=== PATIENT | male | born 1985 | race Caucasian/White ===

== ENCOUNTER 2024-01-09 18:15 | Emergency (ER) | payer OTHER ==
[~2024-01-09] VITALS: Ht 182.9 cm; Wt 122.5 kg
[2024-01-09] MEDS: SODIUM CHLORIDE 0.9% 1000ML 1,000 ML IV STA (20:02)
[2024-01-09] MEDS: FAMOTIDINE 20 MG/2 ML VIAL IV STA (20:02)
[2024-01-09] MEDS ORDERED: PANTOPRAZOLE SO40 MG PO (21:08)
[2024-01-09 21:33] VITALS: PULSE 72; RESP 17; TEMP 98.6; O2SAT 98
== END 2024-01-09 21:33 | disposition home or self-care (01) ==
LOC: FSED 18:19
DX: R07.89 Other chest pain (principal); K21.9 Gastro-esophageal reflux disease without esophagitis; F45.8 Other somatoform disorders; F10.20 Alcohol dependence, uncomplicated; R03.0 Elevated blood-pressure reading, without diagnosis of hypertension; E66.9 Obesity, unspecified; Z68.39 Body mass index [BMI] 39.0-39.9, adult; R94.31 Abnormal electrocardiogram [ECG] [EKG]
CPT/HCPCS: 71046; 80048; 80076; 84484; 85025; 85379; 93005; 94760; 99284; J7030